=== PATIENT | female | born 1990 | race Caucasian/White ===

== ENCOUNTER 2017-06-27 19:58 | Emergency (ER) | payer OTHER ==
--- NOTE | ~2017-06-27 | ER ---
PATIENT'S NAME: MATHEUS GRAHAM [facility] AGE: 26 Y [address] ROOM: [place] [address] LOCATION: [facility] ADMIT DATE: 06/27/2017 ER/Outpatient Report DISCHARGE DATE: 06/27/2017 FAMILY PHYSICIAN: Rosa Miles MD ATTENDING PHYSICIAN: Satnam Degroot Admission date and time documented in the medical record. I saw the patient at 2030 hours. CHIEF COMPLAINT: Racing heart, anxiety. HISTORY OF PRESENT ILLNESS: The patient is a 26-year-old female who around 1630 hours felt like her heart was racing. She also felt that her heart was irregular. She did feel anxious in regard to this. Brought to the emergency room for evaluation. No chest pain. Has a little bit of irregular breathing and catching her breath. No fever, chills, sweats, coughs, colds, flus. No rigors. No abdominal pain, nausea, vomiting, diarrhea, urinary frequency or urgency, or dysuria. No incontinence. No headache; eyes ears, nose, throat, neck, or spine pain. No fall or trauma. No recent illnesses. No lightheadedness, dizziness, syncope, or near syncope. No joint or muscle swelling, redness, or pain. No skin eruptions or rash. Does have a history of anxiety. No other psych issues. No neuro changes or endocrine problems. HOME MEDICATIONS: None. ALLERGIES: NONE. SOCIAL HISTORY: The patient smokes about a quarter to half a pack of cigarettes a day. Occasional use of marijuana. Nondrinker. SIGNIFICANT PAST MEDICAL HISTORY: Chronic back pain, tobacco abuse, anxiety. OPERATIONS: . REVIEW OF SYSTEMS: All systems reviewed by me are negative with the exception of those discussed in the history of the present illness. PATIENT'S NAME: MATHEUS GRAHAM [facility] AGE: 26 Y [address] ROOM: [place] [address] LOCATION: [facility] ADMIT DATE: 06/27/2017 ER/Outpatient Report DISCHARGE DATE: 06/27/2017 FAMILY PHYSICIAN: Rosa Miles MD ATTENDING PHYSICIAN: Satnam Degroot PHYSICAL EXAMINATION: VITAL SIGNS: Temperature 96.8, pulse 85, respirations 20, O2 sat on room air is 99%. [place] Coma Scale was 15. HEAD: Normocephalic. No abrasion, contusion, laceration, swelling of the scalp or face. EYES: Extraocular muscles intact. PERRL. EARS: Clear TMs bilaterally. NOSE: Clear. THROAT: Clear. Mucous membranes moist. TEETH/JAW: Intact. NECK: No nuchal rigidity. No thyromegaly or cervical adenopathy. Range of motion full. No tenderness. SPINE: Nontender. No deformity. LUNGS: Clear. Good air flow. No rales, rhonchi, or wheezes. HEART: Regular. Pulses are palpable. No chest wall or ribcage pain to palpation. ABDOMEN: Flat, soft, nondistended, nontender. Good bowel tones. No organomegaly or abnormal mass palpable. EXTREMITIES: Intact. NEUROVASCULAR: Intact. SKIN: Clear. No skin eruptions or rash. IMAGING DATA: EKG showed sinus rhythm. No acute ST elevation, ischemic change, or arrhythmia. Chest x-ray showed no acute infiltrate or changes. We will review x-ray with the radiologist. LABORATORY DATA: CMS was normal except for a slight low potassium of 3.6. Magnesium normal at 2.1. CPK was normal at 88. Point of care cardiac enzymes were normal. CRP was normal at less than 0.29. Serum quantitative HCG was negative. Thyroid tests were normal. ProBNP was normal at 33. White count was 9600, 48 segs, 46 lymphs, 4 monos, 1 eo, 1 baso. Hemoglobin was 14.4 with hematocrit of 42.5, platelet count was 256,000. PTT was 26, pro-time was 10 with an INR of 0.95. D-dimer was normal at 0.46. Venous pH was 7.39. Lactate was normal at 0.9. IMPRESSION: Probable anxiety-related feeling of tachyarrhythmia. No tachyarrhythmia was seen on monitor. The patient also felt like she was having irregularly irregular heart rate; however, she was having a normal sinus rhythm. It was questionable whether she was having some mild palpitations. PLAN: The patient dismissed home. Observation. Activity as tolerated. Fluids, diet as tolerated. Continue present home care. Follow up with personal physician as needed. Discussion ensued with the patient concerning my PATIENT'S NAME: MATHUES GRAHAM [facility] AGE: 26 Y [address] ROOM: [place] [address] LOCATION: [facility] ADMIT DATE: 06/27/2017 ER/Outpatient Report DISCHARGE DATE: 06/27/2017 FAMILY PHYSICIAN: Rosa Miles MD ATTENDING PHYSICIAN: Satnam Degroot findings and recommendations, she understands. MD SUGAR BUSTILLOS/modl /[id number] d: t: 06/28/17 0155, OUTPATIENT REPORT
[2017-06-27 21:19] LABS: BICARBONATE 26.6 mmol/L (18.0-23.0); LACTATE 0.9 mEq/L (0.50-1.60); PCO2 44 mmHg (35-45)
[2017-06-27 21:20] LABS: BASOPHIL # 0.1 K/uL (0.0-0.2); BASOPHIL % 0.7 %; EOSINOPHIL # 0.1 K/uL (0.0-0.5); EOSINOPHIL % 1.2 %; HEMATOCRIT 42.5 % (33.0-46.0); HEMOGLOBIN 14.4 g/dL (11.0-15.0); IMMATURE GRANULOCYTE % 0.2 %; LYMPHOCYTE # 4.4 K/uL (0.8-4.0); MCH 31.9 pg (27.0-34.0); MCHC 33.9 gm/dL (32.0-36.5); MONOCYTE # 0.4 K/uL (0.0-1.0); MONOCYTE % 4.3 %; MPV 9.9 fl (9.4-12.4); NEUTROPHIL # (ANC) 4.6 K/uL (1.8-7.8); NEUTROPHIL % 47.6 %; NRBC % 0 /100WBC (0-0.00); PLATELET COUNT 256 K/uL (150-450); RBC 4.52 M/uL (3.50-5.00); RDW-CV 11.9 % (11.9-14.6); WBC 9.6 K/uL (4.0-11.0)
[2017-06-27 21:21] LABS: PO2 37 mmHg (80-90)
[2017-06-27 21:33] LABS: INR - (THERAPEUTIC) 0.95 (0.92-1.07); PTT 26 SECONDS (25-32)
[2017-06-27 21:43] LABS: ALK PHOS 56 IU/L (33-138); ALT 16 IU/L (12-78); ANION GAP 10.6 (10.0-19.0); AST 17 IU/L (10-40); BLOOD UREA NITROGEN 9 mg/dL (6-24); CALCIUM 8.9 mg/dL (8.5-10.5); CHLORIDE 109 mMol/L (96-110); CO2 25 mMol/L (22-32); CPK 88 IU/L (21-215); CREATININE 0.7 mg/dL (0.5-1.1); MAGNESIUM 2.1 mg/dL (1.8-2.6); POTASSIUM 3.6 mMol/L (3.7-5.1); SODIUM 141 mMol/L (135-145); TOTAL BILIRUBIN 0.3 mg/dL (0.0-1.5); TOTAL PROTEIN 7.8 g/dL (6.0-8.4)
== END 2017-06-27 22:20 | disposition disaster alternative care site (69) ==
LOC: GMED 19:58
PROVIDERS: Emergency Medicine
DX: R00.2 Palpitations (principal); F41.9 Anxiety disorder, unspecified; F17.210 Nicotine dependence, cigarettes, uncomplicated; Z98.890 Other specified postprocedural states